=== PATIENT | female | born 1990 | race Caucasian/White ===

== ENCOUNTER 2016-12-15 09:53 | Emergency (ER) | payer OTHER ==
[2016-12-15 10:19] LABS: BILIRUBIN NEGATIVE (NEGATIVE); BLOOD 2+ Ery/uL (NEGATIVE); CLARITY HAZY (CLEAR); COLOR YELLOW (YELLOW); GLUCOSE (U) NORMAL (NORMAL); KETONE (U) NEGATIVE (NEGATIVE); LEUKOCYTES 3+ Leu/uL (NEGATIVE); NITRITE POSITIVE (NEGATIVE); PROTEIN 2+ mg/dL (NEGATIVE); SPECIFIC GRAVITY 1.015 (1.001-1.030); pH 6.5 (5.0-9.0)
[2016-12-15 10:38] LABS: BACTERIA 2+; SQUAMOUS EPITHELIAL CELLS 20-50
[2016-12-15 10:41] LABS: URINARY WBC TNTC
[2016-12-15 10:41] LABS: BASOPHIL 0.2 % (0-2); EOSINOPHIL 0.2 % (0-5); HCT 44.1 % (37.0-47.0); HGB 15.3 g/dl (12.5-16.0); LYMPHOCYTE 10.6 % (15-48); MCH 31.3 pg (25.0-31.0); MCHC 34.7 g/dL (32.0-36.0); MCV 90.2 fL (78.0-100.0); MONOCYTE 9.9 % (0-12); NEUTROPHIL 79.1 % (41-80); PLT 270 K/uL (150-400); RBC 4.89 M/uL (4.20-5.40); RDW 13.4 % (11.5-14.0); WBC 17.6 K/uL (4.0-10.5)
[2016-12-15 10:56] LABS: ALBUMIN 4.6 g/dL (3.5-5.0); BILIRUBIN - TOTAL 1.3 mg/dL (0.1-1.0); CREATININE 0.7 mg/dL (0.5-1.0); GLOBULIN (CALCULATION) 3.6 g/dL (2.2-4.2); PHOSPHORUS 1.8 mg/dL (2.7-4.5); POTASSIUM 3.7 mmol/L (3.5-5.1); TOTAL PROTEIN 8.2 g/dL (6.4-8.3)
== END 2016-12-15 11:36 | disposition left against medical advice (07) ==
LOC: FER 09:53
PROVIDERS: Emergency Medicine
DX: N10 Acute pyelonephritis (principal); F17.210 Nicotine dependence, cigarettes, uncomplicated; Z87.442 Personal history of urinary calculi; Z86.19 Personal history of other infectious and parasitic diseases
CPT/HCPCS: 36415; 80053; 81001; 84100; 85025; 87076; 87088; 87186; J1885; J2405